=== PATIENT | female | born 1975 | race African-American/Black ===

== ENCOUNTER 2017-06-11 12:21 | Emergency (ER) | payer BC ==
[~2017-06-11] VITALS: Ht 160 cm; Wt 70.3 kg
[2017-06-11 12:45] VITALS: BP 135/78
== END 2017-06-11 17:34 | disposition left against medical advice (07) ==
LOC: ER 12:21
DX: R10.9 Unspecified abdominal pain (principal); Z53.21 Procedure and treatment not carried out due to patient leaving prior to being seen by health care provider
CPT/HCPCS: 93005